=== PATIENT | male | born 1940 | race Caucasian/White ===

== ENCOUNTER → 2020-04-09 07:59 | Outpatient (CLI) | payer MEDICARE, SELFPAY ==
--- NOTE | 2020-04-09 08:15 | RAD_ITS ---
STUDY: BARIUM ENEMA. REASON FOR EXAM: Male, 79 years old. CONSTIPATION 9MO -- DIARRHEA 4-5 WEEKS -- COLONOSCOPY SUNDAY 3 BIOPSIES, TORTUOUS COLON -- NO SURG, HX OF PROSTATE CANCER 2004 HX OF MELANOMA FLUOROSCOPY TIME (if supplied): ( 90 seconds. ) minutes/seconds. 15 images were obtained. TECHNIQUE: A medical technologist view of the abdomen was obtained prior to the examination. Following this, contrast was introduced retrograde through the rectum. Entire colon was opacified. Imaging was obtained. COMPARISON: None. FINDINGS: On the medical technologist view, surgical clips are seen in the pelvis in keeping with prior prostatectomy. There is evidence of small right intrarenal calculi. There is no antegrade or retrograde obstruction to the flow of contrast. The entire colon was opacified. No mass lesion or intraluminal filling defect is seen. There is redundancy of the sigmoid colon. Small amount of residual fecal material is seen in the right hemicolon. RAD/Barium Enema No Air Cont IMPRESSION: Unremarkable barium enema. Electronically Signed: Govind Silva, at 9:36 EDT , Service support ,
== END ==
PROVIDERS: Referring Provider Internal Medicine Gastroenterology; Visit Provider Internal Medicine Gastroenterology
DX: Q43.8 Other specified congenital malformations of intestine (principal); R93.3 Abnormal findings on diagnostic imaging of other parts of digestive tract
CPT/HCPCS: 74270; 74280